=== PATIENT | female | born 1940 | race Caucasian/White ===

== ENCOUNTER 2023-07-31 19:40 | Inpatient (IN) | payer MEDICARE, MEDICAID ==
[~2023-07-31] VITALS: Ht 152.4 cm; Wt 85.7 kg
[2023-07-31 21:04] LABS: BASOPHILS % 0.7 % (0.0-2.0); EOSINOPHILS % 1.1 % (0.0-5.0); HEMATOCRIT. 33.1 % (36.0-48.0); HEMOGLOBIN. 10.5 g/dL (12.0-16.0); LYMPHOCYTES % 28.1 % (20.0-50.0); MEAN CORPUSCULAR HGB CONC 31.8 g/dL (31.0-37.0); MEAN CORPUSCULAR VOLUME 88.1 fL (81.0-99.0); MONOCYTES % 9.7 % (2.0-8.0); NEUTROPHILS % 60.4 % (40.0-76.0); PLATELET 292 x1000/uL (130-400); RED BLOOD CELL COUNT 3.75 mill/uL (4.2-5.4); WHITE BLOOD COUNT 7.6 x1000/uL (4.5-11.0)
[2023-07-31 21:19] LABS: ALANINE AMINOTRANSFERASE 10 IU/L (10-49); ALBUMIN 3.9 g/dL (3.2-4.8); ASPARTATE AMINOTRANSFERASE 14 IU/L (<34); BILIRUBIN TOTAL 0.3 mg/dL (0.1-1.0); CALCIUM 9.1 mg/dL (8.7-10.4); CARBON DIOXIDE 23 mEq/L (21-32); CHLORIDE 104 mEq/L (98-107); CREATININE 0.7 mg/dL (0.6-1.0); GLUCOSE 268 mg/dL (70-105); POTASSIUM 4.1 mEq/L (3.5-5.1); PROTEIN TOTAL 6.9 g/dL (6.0-8.3); SODIUM 135 mEq/L (136-145); TROPONIN I HIGH SENSITIVITY 8 ng/L (3.0-34); UREA NITROGEN BLOOD 14 mg/dL (9-23)
[2023-07-31] MEDS ORDERED: NITROGLYCERIN 0.4MG TABLET SL SL PRN (22:15)
[2023-07-31] MEDS ORDERED: ASPIRIN 81MG TABLET PO ONE (22:15)
[2023-07-31 22:48] LABS: D-DIMER 0.36 mg/L FEU (<0.50); PARTIAL THROMBOPLASTIN TIME 28.4 sec (23.4-31.0); PROTHROMBIN TIME 10.6 sec (9.6-11.0)
[2023-08-01 09:58] LABS: TROPONIN I HIGH SENSITIVITY 14 ng/L (3.0-34)
[2023-08-01] MEDS ORDERED: IPRATROPIUM/ALBUTEROL 0.5-3(2.5)MG/3ML NEB HHN PRN (10:15)
[2023-08-01 11:42] VITALS: BP 165/58; PULSE 52; RESP 19; TEMP 98
[2023-08-01 13:05] VITALS: BP 112/69; PULSE 69; RESP 20; TEMP 97.6
[2023-08-01] MEDS: AMLODIPINE 10MG TABLET PO SCH (13:49)
[2023-08-01] MEDS: ASPIRIN 81MG EC TABLET PO SCH (13:49)
[2023-08-01] MEDS ORDERED: AMLO10TA80 MT (13:52)
[2023-08-01] MEDS ORDERED: LOSA25TA26 MT (13:53)
[2023-08-01] MEDS ORDERED: HYDR25TA PO (13:54)
[2023-08-01] MEDS ORDERED: ASPI-1497 MT (13:54)
[2023-08-01] MEDS ORDERED: GABA-529 MT (13:55)
[2023-08-01] MEDS ORDERED: ENAL-79 PO (13:57)
[2023-08-01] MEDS ORDERED: SPIR25TA6 PO (13:59)
[2023-08-01] MEDS ORDERED: ATOR40TA70 MT (14:00)
[2023-08-01 15:01] LABS: CALCIUM 9.1 mg/dL (8.7-10.4); CARBON DIOXIDE 22 mEq/L (21-32); CHLORIDE 107 mEq/L (98-107); CREATININE 0.7 mg/dL (0.6-1.0); GLUCOSE 144 mg/dL (70-105); POTASSIUM 4.2 mEq/L (3.5-5.1); SODIUM 139 mEq/L (136-145); UREA NITROGEN BLOOD 12 mg/dL (9-23)
[2023-08-01 15:55] VITALS: BP 135/53; PULSE 53; RESP 18; TEMP 97.6
[2023-08-01] MEDS ORDERED: DEXTROSE 50% WATER 50ML SYRINGE IV PRN (16:45)
[2023-08-01] MEDS: GABAPENTIN 100MG CAPSULE PO SCH (17:00)
[2023-08-01] MEDS: BLOOD SUGAR DIAGNOSTIC STRIP TEST SCH ×2 (17:10→21:00)
[2023-08-01] MEDS: INSULIN LISPRO 100 UNITS/ML SUBCUT SCH ×2 (18:02→21:11)
[2023-08-01 20:00] VITALS: BP 148/64; PULSE 64; RESP 21; TEMP 97.5
[2023-08-01] MEDS ORDERED: ATORVASTATIN CALCIUM 40MG TABLET PO SCH (21:00)
[2023-08-01] MEDS ORDERED: INSULIN GLARGINE 100 UNITS/ML SUBCUT SCH (22:00)
[2023-08-02] VITALS: BP 161/62; PULSE 59; RESP 18; TEMP 97.5
[2023-08-02 04:00] VITALS: BP 133/60; PULSE 60; RESP 18; TEMP 97.5
[2023-08-02 06:42] LABS: BASOPHILS % 0.6 % (0.0-2.0); EOSINOPHILS % 2.3 % (0.0-5.0); HEMATOCRIT. 34.1 % (36.0-48.0); HEMOGLOBIN. 11.3 g/dL (12.0-16.0); LYMPHOCYTES % 32.5 % (20.0-50.0); MEAN CORPUSCULAR HEMOGLOBIN 28.6 pg (28.0-32.0); MEAN CORPUSCULAR HGB CONC 33.2 g/dL (31.0-37.0); MEAN CORPUSCULAR VOLUME 86.3 fL (81.0-99.0); MEAN PLATELET VOLUME 9.5 fl (7.4-10.4); NEUTROPHILS % 55.6 % (40.0-76.0); PLATELET 316 x1000/uL (130-400); RED BLOOD CELL COUNT 3.95 mill/uL (4.2-5.4); RED CELL DISTRIBUTION WIDTH 15.7 % (11.6-14.6); WHITE BLOOD COUNT 7.2 x1000/uL (4.5-11.0)
[2023-08-02 06:48] LABS: T4 FREE 1.14 ng/dL (0.89-1.76); THYROID STIMULATING HORMONE 3.23 uIU/mL (0.55-4.78)
[2023-08-02] MEDS: BLOOD SUGAR DIAGNOSTIC STRIP TEST SCH ×2 (07:10→11:51)
[2023-08-02] MEDS: INSULIN LISPRO 100 UNITS/ML SUBCUT SCH (07:40)
[2023-08-02 08:00] VITALS: BP 151/72; PULSE 73; RESP 20; TEMP 97.6
[2023-08-02] MEDS ORDERED: SPIRONOLACTONE 25MG TABLET PO SCH (09:00)
[2023-08-02] MEDS ORDERED: ASPIRIN 81MG EC TABLET PO SCH (09:00)
[2023-08-02] MEDS ORDERED: LOSARTAN 25 MG TABLET PO SCH (09:00)
[2023-08-02] MEDS ORDERED: AMLODIPINE 10MG TABLET PO SCH (09:00)
[2023-08-02] MEDS ORDERED: HYDROCHLOROTHIAZIDE 25MG TABLET PO SCH (09:00)
[2023-08-02] MEDS: AMLODIPINE 10MG TABLET PO SCH (09:41)
[2023-08-02] MEDS: GABAPENTIN 100MG CAPSULE PO SCH (09:41)
[2023-08-02] MEDS: ASPIRIN 81MG EC TABLET PO SCH (09:41)
[2023-08-02 11:26] VITALS: BP 151/72; PULSE 73; TEMP 97.6; O2SAT 95
== END 2023-08-02 12:36 | disposition home or self-care (01) | DRG 305 ==
LOC: ER 19:40 → 5WST 23:34 → EDBEDREQ 23:38 → EDBEDREQTM 23:38 → 8WST 08-01 10:50
PROVIDERS: ADMIT Preventive Medicine Clinical Informatics; ATTEND Preventive Medicine Clinical Informatics
DX: I16.0 Hypertensive urgency (principal); R07.89 Other chest pain; E11.65 Type 2 diabetes mellitus with hyperglycemia; I10 Essential (primary) hypertension; D64.9 Anemia, unspecified; F41.9 Anxiety disorder, unspecified
CPT/HCPCS: 36415; 71045; 80048; 80053; 82962; 83036; 83880; 84439; 84443; 84484; 85025; 85379; 93005; 99285; J1815